=== PATIENT | female | born 1965 | race African-American/Black ===

== ENCOUNTER 2019-10-26 08:00 | Inpatient (IN) | payer OTHER ==
[2019-10-20 16:39] VITALS: BMI 29.7
--- NOTE | 2019-10-26 08:03 | PN ---
Progress Note (short form) - Note Progress Note: 54F s/p RIGHT total knee replacement POD #0. -Pain control: per anaesthesia team. -DVT PPx: -Chemical: ASA 81mg PO BID x 6 weeks. -Mechanical: DAISY's, SCD's. -Incentive spirometry q15 min. -PT/OT/Rehab, OOB. -WBAT RLE. -Post-op Ancef x 3 doses. -f/u post-op TOV: 8 hours max. -f/u AM labs. -Diet as tolerated. -Care per medical hospitalist team. -Discharge planning: f/u [facility] 10-14 days; call for appointment . -Will follow. Odin Muir MD (Orthopaedic Surgery).
[2019-10-26] MEDS ORDERED: CEFAZOLIN 2 GM in DEXTROSE 5%-WATER - 50 ML IVPB ONE (08:04)
[2019-10-26] MEDS ORDERED: TRANEXAMIC ACID 1000 MG/10 ML VIAL IVPUSH ONE (08:04)
--- NOTE | 2019-10-26 08:04 | OP ---
Operative Note - Note: Operative Date: 10/26/19 Pre-Operative Diagnosis: Right knee DJD Operation: Right TKA Implants: [employer] Tri[employer]lon. Femur - 3. Tibia - 4. Poly - 13, PS. Patella - 27mm, symmetric Post-Operative Diagnosis: Same as Pre-op Surgeon: Odin Muir Satellite Dish Installer: Ar Muir Anesthesiologist/SEWAGE DISPOSAL ENGINEER: Behzad Landers Anesthesia: Spinal Estimated Blood Loss (mls): 0 Drains & Tubes with Location: 1 x deep HemoVac Fluid Volume Replaced (mls): 1,900 (Crystalloid) Operative Report Dictated: Yes
[2019-10-26] MEDS ORDERED: VANCOMYCIN 1 GM in D5W (PRE-DOCKED) 1,000 MG/250 ML IVPB ONE (08:05)
[2019-10-26] MEDS ORDERED: SODIUM CHLORIDE 0.9% P/F 10 ML VIAL IJ ONE (10:54)
[2019-10-26] MEDS ORDERED: BUPIVACAINE LIPOSOME/PF (EXPAREL) 266 MG/20 ML VIAL ONE (10:54)
[2019-10-26] MEDS ORDERED: MIDAZOLAM HCL 2 MG/2 ML SINGLE DOSE VIAL ONE ×3 (10:54→14:12)
[2019-10-26] MEDS ORDERED: BUPIVACAINE HCL/PF 0.5% (5MG/ML) 10 ML VIAL ONE (11:41)
[2019-10-26] MEDS ORDERED: ceFAZolin SODIUM 1 GM VIAL ONE ×3 (11:55→13:00)
[2019-10-26] MEDS ORDERED: VANCOMYCIN 1,000 MG VIAL (RESTRICTED TO ID ONLY) ONE (11:57)
[2019-10-26] MEDS ORDERED: TRANEXAMIC ACID 1000 MG/10 ML VIAL ONE ×2 (12:01→13:00)
[2019-10-26] MEDS ORDERED: LOCK ITEM NR ONE (12:13)
[2019-10-26] MEDS ORDERED: PROPOFOL 20 ML ONE ×2 (12:33)
[2019-10-26] MEDS ORDERED: MAG HYDROX/AL HYDROX/SIMETH 30 ML UNIT-DOSE CUP PO PRN (14:51)
[2019-10-26] MEDS ORDERED: MAGNESIUM HYDROX 2400MG/30ML ORAL SUSPENSION 30 ML CUP PO PRN (14:51)
[2019-10-26] MEDS ORDERED: LACTATED RINGERS SOLUTION 1,000 ML IV SCH (15:00)
[2019-10-26] MEDS ORDERED: oxyCODONE HCL 5 MG TABLET PO PRN (15:05)
[2019-10-26] MEDS ORDERED: ACETAMINOPHEN 325 MG TABLET (FP) ONE (15:34)
[2019-10-26] MEDS: ACETAMINOPHEN 325 MG TABLET (FP) PO SCH ×2 (15:40→20:39)
--- NOTE | 2019-10-26 15:53 | HP ---
CHIEF COMPLAINT: Right knee pain PCP: Ortho: Dr. Odin Muir HISTORY OF PRESENT ILLNESS: 54 year-old female with a PMH significant for HTN and right knee DJD s/p right total knee arthroplasty today with Dr. Odin Muir. Recent Travel: No PAST MEDICAL HISTORY: Hypertension Osteoarthritis PAST SURGICAL HISTORY: x 1 Parathyroid gland surgery 2014 Social History: , works as a nurse Smoking: never Alcohol: no Drugs: no Family history: mother with HTN Allergies No Known Allergies Allergy (Verified 10/26/19 09:45) HOME MEDICATIONS: Home Medications Medication Instructions Recorded Amlodipine Besylate [Norvasc -] 5 mg PO DAILY 10/20/19 Hydrochlorothiazide [Hctz -] 12.5 mg PO DAILY 10/20/19 REVIEW OF SYSTEMS CONSTITUTIONAL: Absent: fever, chills, diaphoresis, generalized weakness, malaise, loss of appetite, weight change HEENT: Absent: rhinorrhea, nasal congestion, throat pain, throat swelling, difficulty swallowing, mouth swelling, ear pain, eye pain, visual changes CARDIOVASCULAR: Absent: chest pain, syncope, palpitations, irregular heart rate, lightheade dness, peripheral edema RESPIRATORY: Absent: cough, shortness of breath, dyspnea with exertion, orthopnea, wheezing, stridor, hemoptysis GASTROINTESTINAL: Absent: abdominal pain, abdominal distension, nausea, vomiting, diarrhea, constipation, melena, hematochezia GENITOURINARY: Absent: dysuria, frequency, urgency, hesitancy, hematuria, flank pain, genital pain MUSCULOSKELETAL: Absent: myalgia, arthralgia, joint swelling, back pain, neck pain SKIN: Absent: rash, itching, pallor HEMATOLOGIC/IMMUNOLOGIC: Absent: easy bleeding, easy bruising, lymphadenopathy, frequent infections ENDOCRINE: Absent: unexplained weight gain, unexplained weight loss, heat intolerance, cold intolerance NEUROLOGIC: Absent: headache, focal weakness or paresthesias, dizziness, unsteady gait, seizure, mental status changes, bladder or bowel incontinence PSYCHIATRIC: Absent: anxiety, depression, suicidal or homicidal ideation, hallucinations. PHYSICAL EXAMINATION Vital Signs - 24 hr 10/26/19 10/26/19 09:46 14:52 Temperature 98.7 F 97.5 F L Pulse Rate 71 57 L Respiratory 18 16 Rate Blood Pressure 143/91 136/68 O2 Sat by Pulse 100 Oximetry (%) GENERAL: Awake, alert, and fully oriented, in no acute distress. HEAD: Normal with no signs of trauma. EYES: Pupils equal, round and reactive to light, extraocular movements intact, s clera anicteric, conjunctiva clear. No lid lag. LUNGS: Breath sounds equal, clear to auscultation bilaterally. No wheezes, and no crackles. No accessory muscle use. HEART: Regular rate and rhythm, normal S1 and S2 ABDOMEN: Soft, nontender, not distended, normoactive bowel sounds, no guarding, no rebound, no masses. No hepatomegaly or splenomegaly. MUSCULOSKELETAL: Normal range of motion at all joints. No bony deformities or tenderness. No CVA tenderness. UPPER EXTREMITIES: 2+ pulses, warm, well-perfused. No cyanosis. No clubbing. No peripheral edema. RLE: surgical dressings c/d/i; hemovac drain sanguinous drainage; +flex/extend toes, sensory intact NEUROLOGICAL: Cranial nerves II-XII intact. Normal speech. ASSESSMENT/PLAN: 54 year-old female with a PMH significant for HTN and right knee DJD s/p right total knee arthroplasty. Right total knee arthroplasty --POD #0 --perioperative antibiotics per surgery --pain management per surgery --ASA 81mg BID --protonix --bowel regimen --incentive spirometry --Hemovac drain, monitor output Hypertension --BP stable --continue amlodipine and HCTZ FEN Fluids: PO intake adequate Electrolytes: replete as indicated Nutrition: regular diet DVT prophylaxis: OOB, ambulation, SCDs, TEDs, ASA 81mg BID Physical therapy Dispo: continues to require inpatient care. Full code. Visit type - Emergency Visit Emergency Visit: No - New Patient This patient is new to me today: Yes Date on this admission: 10/28/19 - Critical Care Critical Care patient: No
[2019-10-26] MEDS: ONDANSETRON 4 MG/2 ML VIAL IVPUSH PRN (17:56)
[2019-10-26] MEDS ORDERED: ceFAZolin 2 GRAM PREMIX BAG IVPB SCH (20:00)
[2019-10-26] MEDS: CEFAZOLIN 2 GM/D5W 2 GM/50 ML ML IVPB SCH (20:39)
[2019-10-26] MEDS: oxyCODONE HCL 10 MG SUSTAINED ACTING TABLET PO SCH (21:04)
[2019-10-26] MEDS: SENNOSIDES/DOCUSATE COMBO (SENNA PLUS) TABLET (UD) PO SCH (21:05)
[2019-10-26] MEDS: ASPIRIN 81 MG CHEWABLE TABLETS PO SCH (21:05)
[2019-10-27] MEDS: oxyCODONE HCL 5 MG TABLET PO PRN ×2 (00:28→06:55)
[2019-10-27] MEDS: CEFAZOLIN 2 GM/D5W 2 GM/50 ML ML IVPB SCH ×3 (02:07→14:48)
[2019-10-27] MEDS: ACETAMINOPHEN 325 MG TABLET (FP) PO SCH ×4 (02:15→21:25)
--- NOTE | 2019-10-27 07:43 | PN ---
Progress Note (short form) - Note Progress Note: ORTHO POD _1___, s/p __Rt total knee arthroplasty Pt seen and examined. Doing well post op. Pain well controlled. Has been oob ambulating with PT. Passing flatus. Tolerating diet. Voiding without issue. Denies cp/sob, n/v/d. Vital Signs Temp 99.6 F 10/27/19 05:00 Pulse 78 10/27/19 05:00 Resp 18 10/27/19 05:00 BP 129/67 10/27/19 05:00 Pulse Ox 100 10/27/19 05:00 Intake & Output 10/26/19 10/26/19 10/27/19 11:59 23:59 11:59 Intake Total 1900 350 100 Output Total 900 1100 Balance 1900 -550 -1000 Weight 173 lb Intake: IV 1900 50 IVPB 100 Oral 300 Output: Drainage 100 200 Right Knee 100 200 Urine 800 900 Void 800 900 Other: Voiding Method Bedpan Bowel Movement No No Height 5 ft 4 in Body Mass Index (BMI) 29.7 Weight Measurement Method Standing Scale GEN: A&0x3, NAD CV: Lungs: CTA b/l ABD: soft, non-distended, non-tender. Right knee: hemovac in place with 200____serosanguinous drainage in reservoir. Surgical dressing c/d/i. Compartments soft, no calf tenderness or swelling noted b/l. TEDs/SCDS in place b/l. 5/5 dorsi/plantar flexion b/l, 5/5 EHl/FHL b/l, SILT b/l les. Assessment/Plan: __54__y/o F/M with history of __RT KNEE__ OA now POD __1___ s/p R __TKA___. Pt doing well post-operatively. Afebrile, VSS. Pain controlled. -Pain control as ordered -DVT PPx: Chemical: ASA 81 mg po BID x 6 weeks, Mechanical: DAISY's, SCD's -Incentive Spirometry -PT/OT/Rehab, OOB -WBAT LLE/RLE -Keep drain in place, monitor I&Os -f/u am labs -Home meds ordered as appropriate -Care per medical hospitalist team.
[2019-10-27 08:19] LABS: CALCIUM 8.6 mg/dl (8.5-10); CREATININE 0.6 mg/dl (0.55-1.3)
[2019-10-27 08:24] LABS: POTASSIUM 2.9 mmol/L (3.5-5.1)
[2019-10-27 08:28] LABS: HEMATOCRIT 34.1 % (32.4-45.2); HEMOGLOBIN 11.7 GM/dl (10.7-15.3); MCH 28.8 pg (25.7-33.7); MCHC 34.4 g/dl (32.0-36.0); MEAN CELL VOLUME 83.8 fl (80-96); MEAN PLT VOLUME 11.6 fl (7.5-11.1); PLATELET COUNT 169 K/MM3 (134-434); RBC 4.07 M/mm3 (3.60-5.2); RDW 12.8 % (11.6-15.6); WHITE BLOOD COUNT 8.4 K/mm3 (4.0-10.8)
[2019-10-27] MEDS ORDERED: KETOROLAC TROMETHAMINE 30 MG/1 ML VIAL IVPUSH ONE (08:30)
[2019-10-27] MEDS ORDERED: POTASSIUM CHLORIDE TABS 20 MEQ TABLET.ER (FP) PO ONE (08:45)
[2019-10-27] MEDS: HYDROCHLOROTHIAZIDE 12.5 MG CAPSULE (FP) PO SCH (09:22)
[2019-10-27] MEDS: ASPIRIN 81 MG CHEWABLE TABLETS PO SCH ×2 (09:22→21:25)
[2019-10-27] MEDS: oxyCODONE HCL 10 MG SUSTAINED ACTING TABLET PO SCH (09:23)
[2019-10-27] MEDS: PANTOPRAZOLE 40 MG TABLET PO SCH (09:23)
[2019-10-27] MEDS: SENNOSIDES/DOCUSATE COMBO (SENNA PLUS) TABLET (UD) PO SCH ×2 (09:23→21:25)
[2019-10-27] MEDS: amLODIPine BESYLATE 5 MG TABLET (FP) PO SCH (09:23)
[2019-10-27] MEDS: ONDANSETRON 4 MG/2 ML VIAL IVPUSH PRN ×2 (10:22→17:10)
--- NOTE | 2019-10-27 10:22 | PN ---
Progress Note (short form) - Note Progress Note: ANESTHESIA POSTOP 54 YO FEMALE POD#1 S/P RTKA, SPINAL WITH PNB Patient sitting in chair. Pain adequately controlled. Tolerating PO. VSS, Afebrile Continue current care. Encouraged IS and active participation in PT No anesthetic complications
--- NOTE | 2019-10-27 10:25 | OP ---
Date of Operation: 10/26/2019 Pre-Operative Diagnosis: Tri-compartment osteoarthritis right knee. Post-Operative Diagnosis: Tri-compartment osteoarthritis right knee. Procedure Performed:Right total knee replacement. (12282) Surgeon: Odin Muir M.D. Boarding Machine Operator: Ar Muir M.D. Anesthesia: Spinal, sedation, adductor canal block. Position: Supine Incision: Midline Specimens Removed: Bones, soft tissue. Estimated Blood Loss: 0mL. Intravenous Fluid: 1.9L crystalloid. Specimens: None. Drains: 1 x deep HemoVac. Complications: None. Urine Output: None. Bacteriology: None. Transfusions: None. Closure: No. 1 and 2-0 Vicryl, 3-0 Biosyn absorbable sutures. Tourniquet Pressure: 350 mmHg. Tourniquet Time: 135 minutes. INDICATIONS: The patient was indicated for a right total knee replacement in order to facilitate improved motion and mobilization, and to prevent the complications associated with a sedentary lifestyle. The patient was identified in the holding area by her armband. A long discussion was held with the patient regarding the risks, benefits and alternatives of the above-named procedure. Risks include but are not limited to: pain, bleeding, infection, damage to surrounding structures (including nerves, blood vessels, skin, ligaments, tendons and bone), wound complications, failure of hardware/implants/reduction, need for further surgery, blood clots, myocardial infarction, pulmonary embolism, cerebrovascular insult, anesthesia complications, compartment syndrome, limb loss, limp, loss of function, and . Benefits as mentioned above. Alternatives include no surgery. All questions were answered. The patient understood and agreed to the procedure. Informed consent was obtained, witnessed and verified by hospital nursing staff. The patients correct operative limb - that is the right lower extremity - was marked. The patient was then seen by the anesthesia and nursing staff. In the preoperative holding area, the patient then received a lower extremity adductor canal nerve block on the operative limb. The patient was taken to the operating room by the anesthesia and nursing staff. PROCEDURE: The patient was brought into the operating room and transferred to the OR table, and secured with a safety strap. Consent and the operative site were again verified with the patient, the nursing team, the surgical team, and the anesthesiology team. Anesthesia, IV antibiotics, and TXA were then administered without complication. A time out was done, led by me the attending surgeon. A preoperative orthopedic examination revealed no concerning flexion contracture of the right knee. The patient was positioned with all bony prominences well padded, and a tourniquet was placed proximally on the thigh of the operative limb and set to 350mmHg. The operative limb was prepped in standard sterile fashion using betadine prep & scrub, wiped off with alcohol, DuraPrep applied, and then free draped. A time-out was again done. The limb was then exsanguinated using elevation and an Esmarch. The tourniquet was inflated, and the case began. A midline longitudinal incision was made over the operative knee followed by a subvastus exposure. The infrapatellar fat pad was excised. A peripatellar neurectomy was performed using electrocautery. The patella was everted, and a free-hand cut was made using an oscillating saw blade to facilitate patellar resurfacing. With the intention of implanting a 27mm, symmetric patellar button, a drill guide was utilized to ream 3 drill holes into the cut surface of the patella. The knee was then flexed to 90 degrees and the anterior cruciate ligament (ACL) and posterior cruciate ligament (PCL) were transected using electrocautery. Throughout the case, sharp and blunt Hohmann retractors were used to provide full exposure of the knee, and also to protect the collateral ligaments, the patellar ligament, the quadriceps mechanism, and other soft tissue structures. Next, attention was turned to the proximal tibia. The tibia was subluxed anteriorly and the extra-medullary jig was assembled and placed. With alignment verified, the tibial cutting block was pinned into position and the proximal tibial cut was made using an oscillating saw. The bone cut was freed of all soft tissue attachments using electrocautery. Next, attention was turned to the distal femur. An opening reamer was used to access the medullary canal of the distal femur. This was approximately 1cm anterior to the intercondylar notch and centered over the lateral aspect of the medial femoral condyle. The intra-medullary alignment jig was then inserted, and the distal femoral cutting block was pinned into position. The distal femoral cut was then made using an oscillating saw. Rotation of the distal femoral sizing block was dialed in after referencing Summers's line, the trans-epicondylar axis, and the posterior condylar axis. The size of the distal femur was measured and a sized 4-in-1 distal femoral cutting block was pinned into position. The anterior, anterior chamfer, posterior, and posterior chamfer cuts were then made using an oscillating saw. All bone cuts were removed. With the knee in full extension, laminar spreaders were used to facilitate excision of the medial and lateral menisci using electrocautery. With the knee in full extension and gentle traction applied to the ankle, a rectangular box could be visualized where the bone cuts had been made. With gentle impaction of the proximal tibia into the distal femur, excellent limb alignment was confirmed. A spacer block was then used to confirm symmetric space/gap balance in both full extension and in 90 degrees of flexion of the knee. The notch cutting block was pinned into place over the distal femur and the notch cuts were made using a chisel and an oscillating saw. The bone cut and soft tissue attachments were excised using electrocautery. The tibial preparation plate was then pinned into place, the trial femoral component was positioned, and an appropriately sized trial polyethylene liner was inserted. The knee was then taken through a full range of motion, demonstrating excellent stability and range of motion in the coronal, sagittal, and axial planes from 0 to 130 degrees of flexion. At 90 degrees of flexion, 2 lug holes were drilled via the femoral trial component into the distal femoral bone bed. The femoral trial component and polyethylene liner were then removed, and the proximal tibial preparation was completed using a drill guide, drill, and keel punch. All tibial trial components were then removed. All cut bone surfaces, soft tissues, and remaining surgically exposed structures were then thoroughly irrigated using pulse lavage. The cut bone surfaces were dried, and the interstices of the bone bed were free of blood, water, and lipid content. Final components were implanted using low viscosity cement mixed in a vacuum. Cementation was performed using a pressurized gun. The trial polyethylene liner was then inserted. The knee was then placed in full extension while the cement hardened. All extraneous cement was removed. Once the cement had hardened, the knee was taken through a full range of motion and alignment and stability in the coronal, sagittal, and rotation planes in full extension and at 90 degrees of flexion were satisfactory. Passive range of motion was demonstrated from 0 to 130 degrees of knee flexion. The knee was thoroughly irrigated once again after removal of the trial polyethylene insert. The final polyethylene liner was then inserted. Once again, the knee was taken through a full range of motion and alignment and stability in the coronal, sagittal, and rotation planes in full extension and at 90 degrees of flexion were satisfactory. The leg was straightened, and passive range of motion was demonstrated from 0 to 130 degrees of knee flexion. Final components utilized: [place] Triathlon Femur - size #3. Tibia - size #4. Polyethylene liner - 13mm, PS (posterior stabilized). Patella - 27mm, symmetric. A 1/8 HemoVac drain was placed to drain the subvastus space. The wounds were closed primarily using No. 1 Vicryl sutures, and the skin was eventually closed using 3-0 Biosyn in intracuticular running fashion. Next, the skin surface was cleaned using saline-soaked lap pads and then dried using dry lap pads. Benzoin and Steri-Strips as well as a JumpStart dressing were applied over the wounds, and Webril as well as Eriberto wraps were placed from the foot all the way up to the thigh with a compressive, sterile dressing. Another 1g of Ancef and 1g TXA were administered intravenously. The tourniquet was then released at a final time of 135 minutes. The sponge and needle counts were correct at the end of the case, and I, the attending surgeon, was present and scrubbed throughout the case. AP & lateral x-rays taken in the operating room then confirmed satisfactory implant positioning, and limb alignment and with no evidence of subsidence, loosening, or ki-prosthetic fracture or unintentionally retained radio-opaque foreign bodies. The patient was then transferred to the hospital bed and then to the recovery room in stable condition having tolerated this procedure well. MD LEONEL Nugent/[id number] MTDD
--- NOTE | 2019-10-27 12:11 | PN ---
Physical Exam: SUBJECTIVE: Patient seen and examined. Did well with PT this morning, pain is well-managed. OBJECTIVE: Vital Signs Period Temp Pulse Resp BP Sys/Carmen Pulse Ox Last 24 Hr 97.5 F-99.6 F 51-78 16-18 115-141/64-85 100-100 GENERAL: The patient is awake, alert, and fully oriented, in no acute distress. LUNGS: Breath sounds equal, clear to auscultation bilaterally, no wheezes, no crackles, no accessory muscle use. HEART: Regular rate and rhythm, S1, S2 EXTREMITIES: RLE: surgical dressings c/d/i; hemovac drain sanguinous drainage; +flex/extend toes, sensory intact Laboratory Results - last 24 hr 10/27/19 10/27/19 07:13 07:15 WBC 8.4 RBC 4.07 Hgb 11.7 Hct 34.1 MCV 83.8 MCH 28.8 MCHC 34.4 RDW 12.8 Plt Count 169 MPV 11.6 H Sodium 132 L Potassium 2.9 L* Chloride 98 Carbon Dioxide 24 Anion Gap 10 BUN 9.0 Creatinine 0.6 Est GFR (CKD-EPI)AfAm 118.09 Est GFR (CKD-EPI)NonAf 101.89 Random Glucose 155 H Calcium 8.6 Active Medications Generic Name Dose Route Start Last Admin Trade Name Freq PRN Reason Stop Dose Admin Acetaminophen 650 mg 10/26/19 15:15 10/27/19 09:23 Tylenol - PO 10/29/19 15:14 Not Given Q6H JORGE ALBERTO Al Hydroxide/Mg Hydroxide 30 ml 10/26/19 14:51 10/27/19 10:22 Mylanta Oral Suspension - PO 30 ml Q4H PRN Administration DYSPEPSIA Amlodipine Besylate 5 mg 10/26/19 10:00 10/27/19 09:23 Norvasc - PO 5 mg DAILY JORGE ALBERTO Administration Aspirin 81 mg 10/26/19 22:00 10/27/19 09:22 Asa - PO 81 mg BID JORGE ALBERTO Administration Hydrochlorothiazide 12.5 mg 10/26/19 10:00 10/27/19 09:22 Hctz - PO 12.5 mg DAILY JORGE ALBERTO Administration Cefazolin Sodium/Dextrose 2 gm in 50 mls @ 100 mls/hr 10/26/19 20:00 10/27/19 08:06 Ancef 2 Gm Premixed Ivpb - IVPB 10/27/19 19:59 100 mls/hr Q6H JORGE ALBERTO Administration Magnesium Hydroxide 30 ml 10/26/19 14:51 Milk Of Magnesia - PO PRN PRN CONSTIPATION Ondansetron HCl 4 mg 10/26/19 14:51 10/27/19 10:22 Zofran Injection IVPUSH 4 mg Q6H PRN Administration NAUSEA Oxycodone HCl 5 mg 10/26/19 15:05 10/27/19 02:10 Roxicodone - PO 5 mg Q3H PRN Administration PAIN LEVEL 1-5 Oxycodone HCl 10 mg 10/26/19 15:05 10/27/19 06:55 Roxicodone - PO 10 mg Q3H PRN Administration PAIN LEVEL 6-10 Pantoprazole Sodium 40 mg 10/27/19 10:00 10/27/19 09:23 Protonix - PO 40 mg DAILY JORGE ALBERTO Administration Potassium Chloride 40 meq 10/27/19 14:00 K-Dur - PO 10/27/19 20:01 Q6H JORGE ALBERTO Senna/Docusate Sodium 2 tablet 10/26/19 22:00 10/27/19 09:23 Pericolace - PO 2 tablet BID JORGE ALBERTO Administration ASSESSMENT/PLAN: 54 year-old female with a PMH significant for HTN and right knee DJD s/p right total knee arthroplasty. Right total knee arthroplasty --POD #1 --perioperative antibiotics complete --pain management per surgery --ASA 81mg BID --protonix --bowel regimen --incentive spirometry --Hemovac drain, monitor output Hypertension --BP stable --continue amlodipine and HCTZ FEN Fluids: PO intake adequate Electrolytes: replete as indicated Nutrition: regular diet DVT prophylaxis: OOB, ambulation, SCDs, TEDs, ASA 81mg BID Physical therapy Dispo: continues to require inpatient care. Full code. Visit type - Emergency Visit Emergency Visit: No - New Patient This patient is new to me today: No - Critical Care Critical Care patient: No
[2019-10-27] MEDS: POTASSIUM CHLORIDE TABS 20 MEQ TABLET.ER (FP) PO SCH ×2 (14:48→20:11)
[2019-10-27] MEDS: KETOROLAC TROMETHAMINE 15 MG/ML VIAL IVPUSH PRN (21:50)
[2019-10-28] MEDS: ACETAMINOPHEN 325 MG TABLET (FP) PO SCH ×2 (05:54→10:03)
[2019-10-28 07:55] LABS: CALCIUM 8.9 mg/dl (8.5-10); CREATININE 0.7 mg/dl (0.55-1.3); POTASSIUM 3.9 mmol/L (3.5-5.1)
[2019-10-28 08:10] LABS: HEMATOCRIT 35.9 % (32.4-45.2); HEMOGLOBIN 12.4 GM/dl (10.7-15.3); MCH 29.2 pg (25.7-33.7); MCHC 34.5 g/dl (32.0-36.0); MEAN CELL VOLUME 84.6 fl (80-96); MEAN PLT VOLUME 10.8 fl (7.5-11.1); PLATELET COUNT 183 K/MM3 (134-434); RBC 4.25 M/mm3 (3.60-5.2); RDW 12.9 % (11.6-15.6); WHITE BLOOD COUNT 8.7 K/mm3 (4.0-10.8)
[2019-10-28] MEDS ORDERED: traMADol HCL 50 MG TABLET PO PRN (08:38)
--- NOTE | 2019-10-28 08:39 | PN ---
Progress Note (short form) - Note Progress Note: POD 2, s/p R TKA Pt seen and examined. States she is feeling well. Looks forward to going home. Had some issues yesterday with n/v believes it is due to taking the pain medications on an empty stomach. No n/v today, has not had breakfast yet. Has been oob without issue. Voiding. Denies fever/chills. Vital Signs Temp 99.1 F 10/28/19 05:00 Pulse 84 10/28/19 05:00 Resp 16 10/28/19 08:39 BP 131/76 10/28/19 05:00 Pulse Ox 99 10/28/19 08:39 Intake & Output 10/27/19 10/27/19 10/28/19 11:59 23:59 11:59 Intake Total 500 600 Output Total 1100 650 90 Balance -600 -50 -90 Intake: IVPB 100 Oral 400 600 Output: Drainage 200 150 90 Right Knee 200 150 90 Urine 900 300 Void 900 300 Emesis 200 Other: Voiding Method Toilet Toilet Toilet Bowel Movement No CBC, BMP 10/28/19 07:22 10/28/19 07:22 Gen: awake, alert, nad Resp: Unlabored on RA Ext: RLE with dressing c/d/i, drain with scant serosanguinous drainage in reservoir. Drain removed without issue, tip intact. 4x4s and tegaderm applied. Eriberto wrap reapplied. 5/5 dorsi/plantarflexion, silt b/l les, palpable pedal pulses b/l A/P: 54 y/o F w/ PMHx htn, OA, now POD 2, s/p R TKR. afebrile, vss labs/exam stable planned for discharge to home today Ultram ordered to see if pt tolerates as oxycodone caused n/v D/c instructions and pain regimen d/w pt at length d/w attending Dr Muir
[2019-10-28 09:31] VITALS: BP 123/64; PULSE 62; TEMP 98.1
[2019-10-28] MEDS: SENNOSIDES/DOCUSATE COMBO (SENNA PLUS) TABLET (UD) PO SCH (10:02)
[2019-10-28] MEDS: KETOROLAC TROMETHAMINE 15 MG/ML VIAL IVPUSH PRN (10:02)
[2019-10-28] MEDS: ASPIRIN 81 MG CHEWABLE TABLETS PO SCH (10:03)
[2019-10-28] MEDS: PANTOPRAZOLE 40 MG TABLET PO SCH (10:03)
[2019-10-28] MEDS: HYDROCHLOROTHIAZIDE 12.5 MG CAPSULE (FP) PO SCH (10:03)
[2019-10-28] MEDS: amLODIPine BESYLATE 5 MG TABLET (FP) PO SCH (10:03)
--- NOTE | 2019-10-28 10:13 | DS ---
Physical Exam: SUBJECTIVE: Patient seen and examined OBJECTIVE: Vital Signs Period Temp Pulse Resp BP Sys/Carmen Pulse Ox Last 24 Hr 98.1 F-99.5 F 62-84 16-18 100-142/53-76 99-100 PHYSICAL EXAM GENERAL: The patient is awake, alert, and fully oriented, in no acute distress. LUNGS: Breath sounds equal, clear to auscultation bilaterally, no wheezes, no crackles, no accessory muscle use. HEART: Regular rate and rhythm, S1, S2 EXTREMITIES: RLE: surgical dressings c/d/i; +flex/extend toes, sensory intact LABS Laboratory Results - last 24 hr 10/28/19 10/28/19 07:22 07:22 WBC 8.7 RBC 4.25 Hgb 12.4 Hct 35.9 MCV 84.6 MCH 29.2 MCHC 34.5 RDW 12.9 Plt Count 183 MPV 10.8 Sodium 139 Potassium 3.9 Chloride 104 Carbon Dioxide 26 Anion Gap 9 BUN 12.0 Creatinine 0.7 Est GFR (CKD-EPI)AfAm 112.26 Est GFR (CKD-EPI)NonAf 96.86 Random Glucose 113 H Calcium 8.9 HOSPITAL COURSE: Date of Admission:10/26/19 Date of Discharge: 10/28/19 54 year-old female with a PMH significant for HTN and right knee DJD s/p right total knee arthroplasty. Right total knee arthroplasty --uneventful hospital course --perioperative antibiotics complete --pain well-managed with PO meds --ASA 81mg BID x 6 weeks Hypertension --BP stable --continued amlodipine and HCTZ Minutes to complete discharge: 35 Discharge Summary Problems reviewed: Yes Reason For Visit: OSTEOARTHRITIS GELY KNEES Condition: Improved - Instructions Diet, Activity, Other Instructions: Dr. Muir Discharge Instructions for Knee Replacement Post Operative Instructions Physical activity Physical Therapist will come to your home for the first 5 days. You will be set up with outpatient PT at your first post-operative visit. Use assistive devices for ambulation at all times. Weight bearing as tolerated on your surgical side. Do not put pillow under knee. May put pillow under heel. Wound care Leave your surgical dressing in place. Do not change the dressing until seen by your surgeon in the office. No baths or showers. Do not submerge your incision. Do not apply any ointments or lotions to your incision. Please call the office if your dressing is soiled/dirty or is falling off. Apply Graduated Compression Stockings (TEDS) to both lower extremities - remove daily for hygiene ONLY. Diet There are no dietary restrictions. Eat healthy, high-fiber foods. Drink 6 to 8 glasses of liquid each day. This will assist in keeping your bowels are regular. Pain management Any pain prescription medication ordered should be taken as prescribed for moderate to severe pain. Do not take additional Tylenol while taking Percocet. Take Aspirin 81 mg two times a day for a total of 6 weeks to prevent blood clots. Call Dr. Muir for any of the following: Severe pain not relieved by medication Fever of 101 or higher Excessive bleeding or drainage on dressing Inability to urinate If you experience chest pain or shortness of breath, please seek emergency care immediately. Please call the office at to confirm your post-op appointment for the week following surgery. Referrals: Odin Muir MD [Staff Physician] - Disposition: VNS/HOME HEALTH CARE - Home Medications Comprehensive Discharge Medication List: Ambulatory Orders Amlodipine Besylate [Norvasc -] 5 mg PO DAILY 10/20/19 Hydrochlorothiazide [Hctz -] 12.5 mg PO DAILY 10/20/19 Aspirin [ASA -] 81 mg PO BID tab.chew 10/27/19 oxyCODONE HCL [Roxicodone -] 5 mg PO Q3H PRN #20 tablet MDD 4 10/27/19 Prescription Drug Monitoring Program (I-STOP) results: I-STOP not reviewed This patient is new to me today: No Emergency Visit: No Critical Care patient: No - Discharge Referral Referred to [facility] Med P.C.: No
--- NOTE | 2019-10-28 16:41 | PATH ---
Surgical Pathology Report Patient Name: ELVIA LIMA Med. Rec. #: [id number] /Age/Gender: 1965 (Age: 54) / F Account: [id number] Location: [facility] MED-SURG Taken: 10/26/2019 Received: 10/26/2019 Reported: 10/28/2019 Physicians: Odin Muir M.D. Specimen(s) Received RIGHT KNEE BONES Clinical History Right knee osteoarthritis Final Diagnosis KNEE BONES, RIGHT, TOTAL KNEE REPLACEMENT: DEGENERATIVE JOINT DISEASE. Electronically Signed Anupama Mcgill M.D. Gross Description Received in formalin labeled "right knee bone," is a 9.5 x 7.3 x 2.2 cm aggregate varner-yellow irregular portions of bone and soft tissue. The tibial plateau measures 7.5 x 5.3 x 2.0 cm. There are multiple areas of eburnation present, measuring up to 3.0 cm in greatest dimension. The remaining articular surfaces are varner-yellow and focally granular. The underlying trabecular bone is yellow and hard. [employer] Laboratory Manager sections are submitted in one cassette, following decalcification. /10/27/2019 [facility]10/27/2019
== END 2019-10-28 13:43 | disposition home health service (06) | DRG 470 ==
LOC: FM/S 09:10
PROVIDERS: ADMIT Orthopaedic Surgery Orthopaedic Surgery of the Spine; ATTEND Orthopaedic Surgery Orthopaedic Surgery of the Spine
PROC: 0SRC0J9 Replacement of Right Knee Joint with Synthetic Substitute, Cemented, Open Approach (ICD-10-PCS; principal; 2019-10-26 12:23)
DX: M17.11 Unilateral primary osteoarthritis, right knee (principal); I10 Essential (primary) hypertension
CPT/HCPCS: 36415; 73560-TC-RT-FY; 80048; 85027; 88304-TC; 88311-TC; 94760; 97010-GP; 97116-GP; 97163-GP